=== PATIENT | female | born 1930 | race American Indian/Alaskan Native ===

== ENCOUNTER 2017-02-08 12:48 | Emergency (ER) | payer MEDICARE ==
[2017-02-08 13:29] LABS: Basophils % (Auto) 0.5 % (0.0-1.8); Eosinophils % (Auto) 2.8 % (0.0-4.3); Hematocrit 44.6 % (30.3-42.9); Hemoglobin 14.6 gm/dl (10.1-14.3); Mean Corpuscular HGB Conc 33 % (30-34); Mean Corpuscular Hemoglobin 29 pg (28-32); Mean Corpuscular Volume 90 fl (79-97); Platelet Count 185 K/mm3 (140-440); Red Blood Count 4.98 M/mm3 (3.65-5.03); Red Cell Distribution Width 15.4 % (13.2-15.2); White Blood Count 6.5 K/mm3 (4.5-11.0)
[2017-02-08 13:40] LABS: Anion Gap 18 mmol/L; Blood Urea Nitrogen 14 mg/dL (7-17); Calcium 8.8 mg/dL (8.4-10.2); Carbon Dioxide 25 mmol/L (22-30); Glucose 120 mg/dL (65-100); Sodium 144 mmol/L (137-145)
[2017-02-08 15:58] LABS: Bilirubin,Urine NEG (Negative); Blood,Urine NEG (Negative); Ketones,Urine NEG (Negative); Leukocyte Esterase,Urine NEG (Negative); Mucus,Urine FEW /HPF; Nitrite,Urine NEG (Negative); Urobilinogen,Urine < 2.0 mg/dL (<2.0)
[2017-02-08] MEDS ORDERED: ZOFRAN ODT PO ONE (17:33)
[2017-02-08] MEDS ORDERED: NORCO 5/325 PO ONE (17:33)
--- NOTE | 2017-02-08 18:10 | Cat Scan Report ---
FINAL REPORT EXAM: CT HEAD/BRAIN WO CON HISTORY: headache nausea vomiting TECHNIQUE: Standard unenhanced CT of the head at 5.0 millimeter axial increments PRIORS: None. FINDINGS: The ventricular system is normal in size and configuration. There is no evidence for parenchymal volume loss. There is no evidence for mass lesion, mass effect, midline shift, acute intracranial hemorrhage, or acute ischemia/ infarction. Visualized paranasal sinuses demonstrate complete opacification of the left maxillary sinus. There is protrusion of the soft tissue opacity within the left maxillary sinus into the left nasal cavity. However, this is surrounded by bony remodeling suggesting a chronic process. This may be due to extensive sinus situs, mucocele, or polyp. MRI may be of further help. IMPRESSION: 1. No acute intracranial process noted. 2. Complete opacification of the left maxillary sinus protruding into the left nasal cavity. There is surrounding bony remodeling however suggesting a chronic process. Findings can be due to chronic sinusitis, mucocele, or polyp. MRI is recommended.
--- NOTE | 2017-02-08 18:24 | Emergency Department Report ---
HPI - General Chief Complaint: Nausea/Vomiting/Diarrhea Time Seen by Provider: 02/08/17 17:22 - HPI HPI: Room 10 The patient is an 87-year-old female presenting with a chief complaint of "feeling bad." The patient states earlier this year adjustments were made to the insulation in her apartment and since then whenever it rains her floors get wet. The patient states since mid November 2016 intermittently she has a frontal headache nausea vomiting and blurred vision. Patient states this morning symptoms return. The patient states her headache initially was a 10/10 but is now decreased to 6-7/10. Patient admits to nasal congestion. 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, CAD - Surgical History Past Surgical History?: Yes Additional Surgical History: hysterectomy - Family History Family history: no significant - Social History Smoking Status: Former Smoker (none 30 years) - Medications Home Medications: Home Medications Medication Instructions Recorded Confirmed Last Taken Type Clindamycin [Clindamycin CAP] 300 mg PO Q6H #40 capsule 02/08/17 Unknown Rx HYDROcodone/APAP 5-325 [[place] 1 - 2 each PO Q6HR PRN #14 tablet 02/08/17 Unknown Rx 5/325] ED Review of Systems ROS: Stated complaint: GENERAL ILLNESS Other details as noted in HPI Comment: All other systems reviewed and negative Constitutional: denies: chills, fever Eyes: vision change (blurred vision) ENT: congestion Respiratory: denies: cough, shortness of breath, wheezing Cardiovascular: denies: chest pain, palpitations Endocrine: no symptoms reported Gastrointestinal: denies: abdominal pain, nausea, diarrhea Genitourinary: denies: urgency, dysuria, discharge Musculoskeletal: denies: back pain, joint swelling, arthralgia Skin: denies: rash, lesions Neurological: headache Psychiatric: denies: anxiety, depression Hematological/Lymphatic: denies: easy bleeding, easy bruising Physical Exam - Physical Exam Vital Signs: Vital Signs 02/08/17 12:55 Temperature 98.7 F Pulse Rate 63 Respiratory 20 Rate Blood Pressure 172/115 O2 Sat by Pulse 98 Oximetry Physical Exam: GENERAL: The patient is well-developed well-nourished female lying on stretcher not appearing to be in acute distress. [] HEENT: Normocephalic. Atraumatic. Extraocular motions are intact. Patient has moist mucous membranes. NECK: Supple. No meningitic signs are noted. There is no adenopathy noted. CHEST/LUNGS: Clear to auscultation. There is no respiratory distress noted. HEART/CARDIOVASCULAR: Regular. There is no tachycardia. There is no gallop rub or murmur. ABDOMEN: Abdomen is soft, nontender. Patient has normal bowel sounds. There is no abdominal distention. SKIN: There is no rash. There is no edema. There is no diaphoresis. NEURO: The patient is awake, alert, and oriented. The patient is cooperative. The patient has no focal neurologic deficits. The patient has normal speech. Cranial nerves II through XII grossly intact, no drift, ball ender 5+/5 bilaterally MUSCULOSKELETAL: There is no evidence of acute injury. ED Course Vital Signs 02/08/17 12:55 Temperature 98.7 F Pulse Rate 63 Respiratory 20 Rate Blood Pressure 172/115 O2 Sat by Pulse 98 Oximetry ED Medical Decision Making - Lab Data Result diagrams: 02/08/17 13:07 02/08/17 13:07 Laboratory Tests 02/08/17 02/08/17 02/08/17 13:07 13:07 15:09 WBC 6.5 RBC 4.98 Hgb 14.6 H Hct 44.6 H MCV 90 MCH 29 MCHC 33 RDW 15.4 H Plt Count 185 Lymph % (Auto) 18.6 [place] % (Auto) 7.8 H Eos % (Auto) 2.8 Baso % (Auto) 0.5 Lymph # 1.2 [place] # 0.5 Eos # 0.2 Baso # 0.0 Seg Neutrophils % 70.3 H Seg Neutrophils # 4.5 Sodium 144 Potassium 4.0 Chloride 105.0 Carbon Dioxide 25 Anion Gap 18 BUN 14 Creatinine 1.0 Estimated GFR > 60 BUN/Creatinine Ratio 14.00 Glucose 120 H Calcium 8.8 Urine Color Yellow Urine Turbidity Clear Urine pH 5.0 Ur Specific [place] 1.019 Urine Protein 100 mg/dl Urine Glucose (UA) Neg Urine Ketones Neg Urine Blood Neg Urine Nitrite Neg Urine Bilirubin Neg Urine Urobilinogen < 2.0 Ur Leukocyte Esterase Neg Urine WBC (Auto) 2.0 Urine RBC (Auto) 5.0 U Epithel Cells (Auto) 1.0 Urine Mucus Few - Radiology Data Radiology results: report reviewed (CT head), image reviewed (CT head) CT head (read by radiologist)-no acute intracranial process noted. Complete opacification of the left maxillary sinus protruding into the left nasal cavity. There is surrounding bony remodeling however suggesting a chronic process. Findings can be due to chronic sinusitis, mucocele or polyp. - Differential Diagnosis bronchitis, sinusitis, ICH Critical care attestation.: If time is entered above; I have spent that time in minutes in the direct care of this critically ill patient, excluding procedure time. ED Disposition Clinical Impression: Left maxillary sinusitis, Headache Disposition: TO HOME OR SELFCARE Is pt being admited?: No Does the pt Need Aspirin: No Condition: Stable Instructions: Sinusitis (ED) Additional Instructions: Return to the emergency department immediately should you develop worsening symptoms, fever, inability to tolerate food or liquid or any other concerns. Prescriptions: Clindamycin [Clindamycin CAP] 300 mg PO Q6H #40 capsule HYDROcodone/APAP 5-325 [[place] 5/325] 1 - 2 each PO Q6HR PRN #14 tablet PRN Reason: Pain Referrals: PRIMARY CARE, [Primary Care Provider] - 3-5 Days BRENDEN BURNETT MD [Staff Physician] - [facility] (Dr. Burnett is an turret lathe operator (ear nose and throat doctor). Please follow up with her for further evaluation of your left maxillary opacification (sinusitis)) Time of Disposition: 18:30
[2017-02-08] MEDS ORDERED: XYLOCAINE 1% MPF 5 mL INFILTRATI ONE (18:35)
[2017-02-08] MEDS ORDERED: ROCEPHIN IM ONE (18:35)
[2017-02-08 20:14] VITALS: BP 169/89
== END 2017-02-08 20:11 | disposition home or self-care (01) ==
LOC: ED 12:48
DX: J32.0 Chronic maxillary sinusitis (principal); I10 Essential (primary) hypertension; I25.10 Atherosclerotic heart disease of native coronary artery without angina pectoris; Z87.891 Personal history of nicotine dependence
CPT/HCPCS: 36415; 70450; 80048; 81001; 82962; 85025; 96372; 99284; J0696; Q0162

== ENCOUNTER 2018-08-19 23:56 | Emergency (ER) | payer MEDICARE ==
[2018-08-20] MEDS ORDERED: IMODIUM PO ONE (00:30)
[2018-08-20] MEDS ORDERED: NORCO 5/325 PO ONE (00:40)
[2018-08-20 00:48] LABS: Basophils % (Auto) 0.5 % (0.0-1.8); Eosinophils # (Auto) 0.2 K/mm3 (0.0-0.4); Eosinophils % (Auto) 2.5 % (0.0-4.3); Hematocrit 43.9 % (30.3-42.9); Hemoglobin 14.6 gm/dl (10.1-14.3); Mean Corpuscular HGB Conc 33 % (30-34); Mean Corpuscular Volume 92 fl (79-97); Monocytes # (Auto) 0.5 K/mm3 (0.0-0.8); Monocytes % (Auto) 6.2 % (0.0-7.3); Platelet Count 268 K/mm3 (140-440); Red Cell Distribution Width 15.4 % (13.2-15.2)
--- NOTE | 2018-08-20 00:48 | Emergency Department Report ---
ED Extremity Problem HPI - General Chief complaint: Extremity Problem,Nontraumatic Stated complaint: LEG PAIN Time Seen by Provider: 08/20/18 00:08 Source: EMS Mode of arrival: Stretcher Limitations: Physical Limitation - History of Present Illness Initial comments: 88-year-old female presents to ED with pain to left leg. Patient reports as chronic left hip and knee pain. States takes arthritis medication at home, the pain became much worse today. Patient says she sometimes has exacerbations of her pain and has to come to the ER. She reports having diarrhea today. Denies fever, abdominal pain, nausea, vomiting MD Complaint: joint paint -: This evening Location: left, other (hip) History of Same: Yes -: Yes arthralgia, No fever, No associated dyspnea, No associated chest pain Radiation: distal (to knee) Quality: aching Consistency: intermittent Improves with: medication Worsens with: weight bearing, walking - Related Data Previous Rx's Medication Instructions Recorded Last Taken Type Clindamycin [Clindamycin CAP] 300 mg PO Q6H #40 capsule 02/08/17 Unknown Rx HYDROcodone/APAP 5-325 [[place] 1 - 2 each PO Q6HR PRN #14 tablet 02/08/17 Unknown Rx 5/325] Acetaminophen 500 mg PO Q6H PRN #30 tablet 06/22/18 Unknown Rx Diclofenac Sodium [Voltaren] 100 gm TP Q6H #1 gel..gram. 06/22/18 Unknown Rx Loperamide [Imodium] 2 mg PO Q2HR #4 capsule 08/20/18 Unknown Rx Naproxen [Naprosyn] 500 mg PO BID #20 tablet 08/20/18 Unknown Rx traMADol [Ultram] 50 mg PO Q6HR PRN #7 tablet 08/20/18 Unknown Rx Allergies Allergy/AdvReac Type Severity Reaction Status Date / Time No Known Allergies Allergy Unverified 02/08/17 12:55 ED Review of Systems ROS: Stated complaint: LEG PAIN Other details as noted in HPI Comment: All other systems reviewed and negative Constitutional: denies: chills, fever Gastrointestinal: diarrhea. 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 06/22/18 Unknown Rx Loperamide [Imodium] 2 mg PO Q2HR #4 capsule 08/20/18 Unknown Rx Naproxen [Naprosyn] 500 mg PO BID #20 tablet 08/20/18 Unknown Rx traMADol [Ultram] 50 mg PO Q6HR PRN #7 tablet 08/20/18 Unknown Rx ED Physical Exam - General Limitations: Physical Limitation General appearance: alert, in no apparent distress, obese - Head Head exam: Present: atraumatic, normocephalic - Eye Eye exam: Present: normal appearance - ENT ENT exam: Present: mucous membranes moist - Neck Neck exam: Present: normal inspection - Respiratory Respiratory exam: Present: normal lung sounds bilaterally. Absent: respiratory distress - Cardiovascular Cardiovascular Exam: Present: regular rate, normal rhythm - GI/Abdominal GI/Abdominal exam: Present: soft. Absent: distended, tenderness - Extremities Exam Extremities exam: Present: normal inspection, other (no edema present). Absent: calf tenderness - Neurological Exam Neurological exam: Present: alert, oriented X3 - Psychiatric Psychiatric exam: Present: normal affect, normal mood - Skin Skin exam: Present: warm, dry, intact, normal color ED Course Vital Signs 08/20/18 00:02 Temperature 97.6 F Pulse Rate 99 H Respiratory 20 Rate Blood Pressure 152/88 O2 Sat by Pulse 99 Oximetry ED Medical Decision Making - Lab Data Result diagrams: 08/20/18 00:35 08/20/18 00:35 - Radiology Data Radiology results: report reviewed, image reviewed - Medical Decision Making 88-year-old female with chronic left hip pain presents to ED with exacerbation of that pain. She denies trauma. Plain films show no fracture or dislocation, only signs of arthritis. Patient also reported diarrhea tonight, labs unremarkable except for mild hypokalemia which patient was given by mouth potassium. Patient states she normally gets around with a walker or wheelchair, states she has one that comes to help her once a week. However, patient states has been getting more difficult for her to around her house, and feels as if she needs someone there more than once a week. Patient medically clear at this time. Will give her prescription for pain medicine. Consult for case management ordered for discharge planning. - Differential Diagnosis chronic pain, gastroenteritis, pancreatitis Critical care attestation.: If time is entered above; I have spent that time in minutes in the direct care of this critically ill patient, excluding procedure time. ED Disposition Clinical Impression: Chronic left hip pain, Diarrhea Disposition: TO HOME OR SELFCARE Is pt being admited?: No Condition: Stable Instructions: Acute Diarrhea (ED), Arthralgia (ED), Nutrition Tips for Relief of Diarrhea (ED) Prescriptions: Loperamide [Imodium] 2 mg PO Q2HR #4 capsule Naproxen [Naprosyn] 500 mg PO BID #20 tablet traMADol [Ultram] 50 mg PO Q6HR PRN #7 tablet PRN Reason: Pain Referrals: PRIMARY CAREMD [Primary Care Provider] - 3-5 Days BRENDA MAGANA MD [Staff Physician] - 3-5 Days Time of Disposition: 04:36
[2018-08-20 01:07] LABS: Alanine Aminotransferase 9 units/L (7-56); Albumin 3.3 g/dL (3.9-5); BUN/Creatinine Ratio 15; Blood Urea Nitrogen 15 mg/dL (7-17); Calcium 8.9 mg/dL (8.4-10.2); Hemolysis Index 8
[2018-08-20] MEDS ORDERED: K-DUR PO ONE (01:31)
--- NOTE | 2018-08-20 03:07 | XRay Report ---
FINAL REPORT PROCEDURE: XR HIP 2-3V LT TECHNIQUE: LEFT hip radiographs, AP and lateral views. HISTORY: pain COMPARISON: No prior studies are available for comparison. FINDINGS: Fracture (s) and/or Dislocation(s): None . Joint space(s): Moderate narrowing of the hip joint space. Mild spur formation off the osseous struct ures. Soft tissues: Normal . Bone mineralization: Normal . Foreign bodies: None . IMPRESSION: There is no evidence of an acute fracture or dislocation. Mild arthritis.
[2018-08-20 11:06] VITALS: BP 148/88
== END 2018-08-20 11:04 | disposition home or self-care (01) ==
LOC: ED 23:56
DX: G89.29 Other chronic pain (principal); M25.552 Pain in left hip; R19.7 Diarrhea, unspecified; I10 Essential (primary) hypertension; I25.10 Atherosclerotic heart disease of native coronary artery without angina pectoris; Z90.710 Acquired absence of both cervix and uterus
CPT/HCPCS: 36415; 80053; 85025; 99284